=== PATIENT | female | born 1985 | race Caucasian/White ===

== ENCOUNTER → 2023-07-28 15:39 | Outpatient (REF) | payer OTHER, SELFPAY | LOC: PNTC 15:39 | PROVIDERS: ATTENDING PHYSICIAN Obstetrics & Gynecology | DX: O99.210 Obesity complicating pregnancy, unspecified trimester (principal); O09.529 Supervision of elderly multigravida, unspecified trimester; O99.280 Endocrine, nutritional and metabolic diseases complicating pregnancy, unspecified trimester | CPT/HCPCS: 76805 ==

== ENCOUNTER → 2023-08-28 16:17 | Outpatient (REF) | payer OTHER, SELFPAY | LOC: PNTC 16:17 | PROVIDERS: ATTENDING PHYSICIAN Obstetrics & Gynecology | DX: O09.529 Supervision of elderly multigravida, unspecified trimester (principal); O99.210 Obesity complicating pregnancy, unspecified trimester; O99.280 Endocrine, nutritional and metabolic diseases complicating pregnancy, unspecified trimester | CPT/HCPCS: 76811 ==

== ENCOUNTER → 2023-10-01 10:54 | Outpatient (REF) | payer OTHER, SELFPAY | LOC: PNTC 10:54 | PROVIDERS: ATTENDING PHYSICIAN Obstetrics & Gynecology | DX: O99.210 Obesity complicating pregnancy, unspecified trimester (principal); O99.280 Endocrine, nutritional and metabolic diseases complicating pregnancy, unspecified trimester | CPT/HCPCS: 76816 ==

== ENCOUNTER → 2023-10-29 10:49 | Outpatient (REF) | payer OTHER, SELFPAY | LOC: PNTC 10:49 | PROVIDERS: ATTENDING PHYSICIAN Obstetrics & Gynecology | DX: O99.210 Obesity complicating pregnancy, unspecified trimester (principal); O99.280 Endocrine, nutritional and metabolic diseases complicating pregnancy, unspecified trimester | CPT/HCPCS: 76816 ==

== ENCOUNTER 2024-01-14 21:28 | Inpatient (IN) | payer OTHER, SELFPAY ==
[2024-01-14 22:02] LABS: % Basophils 0.4 % (0-2); % Eosinophils 1.4 % (0-6); % Immature Granulocytes 0.5 % (0-0.5); % Lymphocytes 27.1 % (20.5-51.1); % Monocytes 6.6 % (1.7-9.3); Absolute Eosinophils 0.2 10^3/uL (0-0.7); Absolute Immature Granulocytes 0.1 10^3/uL (0-0.05); Absolute Lymphocytes 2.9 10^3/uL (1.2-3.4); Absolute Monocytes 0.7 10^3/uL (0.1-0.6); Absolute Neutrophils 6.7 10^3/uL (1.4-6.5); Hematocrit 38.8 % (37.0-47.0); Hemoglobin 13.4 g/dL (12.0-16.0); Mean Corp Hgb Conc. 34.5 g/dL (33.0-37.0); Mean Corpuscular Hgb 30.8 pg (27.0-31.0); Mean Corpuscular Volume 89.2 fL (81.0-99.0); Mean Platelet Volume 11.1 fL (7.4-10.4); Nucleated Red Blood Cells % 0 %; Platelet Count 230 10^3/uL (130-400); Red Blood Cell Count 4.35 10^6/uL (4.20-5.40); Red Cell Dist. Width 12.8 % (11.5-14.5); White Blood Cell Count 10.5 10^3/uL (4.8-10.8)
[2024-01-14 22:11] VITALS: BP 135/87; BMI 41.6
[2024-01-14] MEDS: CYTOTEC 25 MICROGRAM VAG (23:29)
[2024-01-14] MEDS: SYNTHROID 75 MCG PO (23:48)
[2024-01-14] MEDS: VALTREX 500 MG PO (23:48)
[2024-01-15] MEDS: LR 1000 IV ×2 (01:30→06:00)
[2024-01-15] MEDS: PENICILLIN 110 UNITS IV (01:30)
[2024-01-15] MEDS: CYTOTEC 50 MICROGRAM PO (04:00)
[2024-01-15] MEDS: PENICILLIN 55 UNITS IV ×2 (05:30→09:29)
[2024-01-15] MEDS: FENTANYL/BUPIVACAINE 100 EPIDURAL (05:54)
[2024-01-15] MEDS: SUBLIMAZE 100 MCG EPIDURAL (05:54)
[2024-01-15] MEDS: VALTREX 500 MG PO (08:05)
[2024-01-15] MEDS: PRENATAL PLUS PO (08:06)
[2024-01-15] MEDS: CYTOTEC PO ×2 (09:31→11:41)
[2024-01-15] MEDS: MOTRIN 600 MG PO (16:49)
[2024-01-15] MEDS: TYLENOL 650 MG PO (21:24)
[2024-01-15] MEDS: SYNTHROID 75 MCG PO (22:06)
[2024-01-16] MEDS: MOTRIN 600 MG PO ×4 (00:12→20:50)
[2024-01-16 05:16] LABS: Hemoglobin 12.1 g/dL (12.0-16.0)
[2024-01-16 10:49] LABS: Syphilis/T. pallidum Ab Reflex Negative (Negative)
[2024-01-16] MEDS: PRENATAL PLUS 1 TABLET PO (12:46)
[2024-01-16] MEDS: TYLENOL 650 MG PO (20:50)
[2024-01-16] MEDS: SYNTHROID 75 MCG PO (21:49)
[2024-01-17] MEDS: TYLENOL 650 MG PO (04:47)
[2024-01-17] MEDS: MOTRIN 600 MG PO (04:48)
[2024-01-17] MEDS: SENOKOT-S 1 TABLET PO (08:18)
[2024-01-17] MEDS: PRENATAL PLUS 1 TABLET PO (08:18)
== END 2024-01-17 10:30 | disposition home or self-care (01) | DRG 806 ==
LOC: LDRP 21:28
PROVIDERS: Obstetrics & Gynecology; ADMITTING PHYSICIAN Obstetrics & Gynecology; REFERRING PHYSICIAN Obstetrics & Gynecology
PROC: 3E0P7VZ Introduction of Hormone into Female Reproductive, Via Natural or Artificial Opening (ICD-10-PCS; 2024-01-14)
PROC: 0KQM0ZZ Repair Perineum Muscle, Open Approach (ICD-10-PCS; 2024-01-15)
PROC: 10907ZC Drainage of Amniotic Fluid, Therapeutic from Products of Conception, Via Natural or Artificial Opening (ICD-10-PCS; 2024-01-15)
PROC: 10E0XZZ Delivery of Products of Conception, External Approach (ICD-10-PCS; 2024-01-15)
DX: O48.0 Post-term pregnancy (principal); O98.32 Other infections with a predominantly sexual mode of transmission complicating childbirth; Z37.0 Single live birth; Z3A.40 40 weeks gestation of pregnancy; O70.1 Second degree perineal laceration during delivery; O99.824 Streptococcus B carrier state complicating childbirth; O99.284 Endocrine, nutritional and metabolic diseases complicating childbirth; E06.3 Autoimmune thyroiditis; Z83.3 Family history of diabetes mellitus; Z82.49 Family history of ischemic heart disease and other diseases of the circulatory system; A60.00 Herpesviral infection of urogenital system, unspecified; O99.214 Obesity complicating childbirth; Z79.890 Hormone replacement therapy; G43.909 Migraine, unspecified, not intractable, without status migrainosus
CPT/HCPCS: 36415; 59025; 85014; 85018; 85025; 86780; 86850; 86900; 86901

== ENCOUNTER 2024-11-11 06:25 | Day surgery (SDC) | payer OTHER, SELFPAY | END 2024-11-11 13:42 | disposition home or self-care (01) | LOC: GI 06:25 | PROVIDERS: ATTENDING PHYSICIAN Internal Medicine Gastroenterology; FAMILY PHYSICIAN Family Medicine | DX: D12.2 Benign neoplasm of ascending colon (principal); D12.5 Benign neoplasm of sigmoid colon; K57.30 Diverticulosis of large intestine without perforation or abscess without bleeding; K64.8 Other hemorrhoids | CPT/HCPCS: 45385; 45380; 88305 ==